=== PATIENT | female | born 1990 | race American Indian/Alaskan Native ===

== ENCOUNTER 2019-10-20 19:47 | Emergency (ER) | payer SELFPAY ==
[2019-10-20] MEDS ORDERED: IBUPROFEN 800 MG TAB ONE (21:24)
[2019-10-20] MEDS ORDERED: IBUPROFEN 800 MG TAB PO ONE (21:39)
--- NOTE | 2019-10-20 21:39 | Event Note ---
ED Screening Note Date of service: 10/20/19 Time: 21:37 ED Screening Note: This initial assessment/diagnostic orders/clinical plan/treatment(s) is/are subject to change based on patients health status, clinical progression and re- assessment by fellow clinical providers in the ED. Further treatment and workup at subsequent clinical providers discretion. Patient/guardian urged not to elope from the ED as their condition may be serious if not clinically assessed and managed. 28 yo female Fever, bodyaches chills and nausea x 2 days. Denies vomiting and diarrhea. On exam no distress, lungs clear. ENT WNL. Initial orders include: Flu Swab Motrin 800 mg po
[2019-10-20] MEDS ORDERED: ACETAMINOPHEN 500 MG TAB PO ONE (21:54)
--- NOTE | 2019-10-20 23:56 | XRay Report ---
CHEST 2 VIEWS INDICATION / CLINICAL INFORMATION: cough, fever. COMPARISON: None available. FINDINGS: SUPPORT DEVICES: None. HEART / MEDIASTINUM: No significant abnormality. LUNGS / PLEURA: No significant pulmonary or pleural abnormality. No pneumothorax. ADDITIONAL FINDINGS: No significant additional findings. IMPRESSION: 1. No acute findings. Signer Name: Flaco Weiss MD Signed: 10/20/2019 11:51 PM Workstation Name: [id number]
[2019-10-21 00:18] LABS: Bacteria,Urine 3+ /HPF (Negative); Bilirubin,Urine NEG (Negative); Blood,Urine NEG (Negative); Color,Urine Amber (Yellow); Hyaline Casts,Urine 4 /LPF; Mucus,Urine 3+ /HPF; Sperm,Urine 1+ /HPF (NP)
--- NOTE | 2019-10-21 00:42 | Emergency Department Report ---
- General Chief Complaint: Upper Respiratory Infection Stated Complaint: SOB, FEVER, HEADACHE, BODY PAIN Time Seen by Provider: 10/20/19 21:34 Source: patient Mode of arrival: Ambulatory Limitations: No Limitations - History of Present Illness Initial Comments: Patient is a 28-year-old -British female with no past medical history who presents to the ED with complaint of acute onset persistent diffuse body aches and pains, nasal and sinus congestion, sore throat, dry cough, headache and lightheadedness with intermittent fever off up to 103F for the last 2 days. Patient states that she has also had nausea but no vomiting. Patient denies abdominal pain, vaginal bleeding, dysuria, urinary frequency and urgency, dizziness, chest pain, shortness of breath, or syncope. MD Complaint: fever, cough, sore throat, rhinorrhea, nasal congestion, sinus pain, other (diffuse body aches and pain) -: Sudden, days(s) (2) Severity: severe Severity scale (0 -10): 8 Quality: sharp, aching Consistency: constant Improves With: nothing Worsens With: nothing Context: sick contacts Associated Symptoms: denies other symptoms, fever, chills, myalgias, diaphoresis, headache, rhinorrhea, nasal congestion, sore throat, cough, nausea. denies: stiff neck, chest pain, shortness of breath, abdominal pain, vomiting, diarrhea, dysuria, rash, confusion, right sweats, weight loss, epistaxis, ear pain, other Treatments Prior to Arrival: none - Related Data Previous Rx's Medication Instructions Recorded Last Taken Type Amoxicillin [Trimox CAP] 500 mg PO Q8H #30 capsule 10/21/19 Unknown Rx Benzonatate [Tessalon Perles] 100 mg PO Q8HR #30 capsule 10/21/19 Unknown Rx Ibuprofen [Motrin] 600 mg PO Q8H PRN #24 tablet 10/21/19 Unknown Rx Ondansetron [Zofran Odt] 4 mg PO Q6H PRN #15 tab.rapdis 10/21/19 Unknown Rx methylPREDNISolone [Medrol 4MG 4 mg PO DAILY #21 tab.ds.pk 10/21/19 Unknown Rx DOSEPAK (21 tabs)] Allergies Allergy/AdvReac Type Severity Reaction Status Date / Time No Known Allergies Allergy Unverified 10/20/19 20:10 ED Review of Systems ROS: Stated complaint: SOB, FEVER, HEADACHE, BODY PAIN Other details as noted in HPI Constitutional: chills, fever, malaise, weakness Eyes: denies: eye pain, eye discharge, vision change ENT: throat pain, congestion. denies: ear pain Respiratory: cough. denies: shortness of breath, SOB with exertion, SOB at rest, wheezing Cardiovascular: chest pain. denies: palpitations, dyspnea on exertion Endocrine: no symptoms reported. denies: excessive sweating Gastrointestinal: nausea. denies: abdominal pain, vomiting, diarrhea Genitourinary: denies: urgency, dysuria, discharge Musculoskeletal: back pain, arthralgia, myalgia. denies: joint swelling Skin: denies: rash, lesions Neurological: headache. denies: weakness, paresthesias Psychiatric: denies: anxiety, depression Hematological/Lymphatic: denies: easy bleeding, easy bruising ED Past Medical Hx - Past Medical History Previous Medical History?: No - Surgical History Past Surgical History?: No - Social History Smoking Status: Never Smoker Substance Use Type: None - Medications Home Medications: Home Medications Medication Instructions Recorded Confirmed Last Taken Type Amoxicillin [Trimox CAP] 500 mg PO Q8H #30 capsule 10/21/19 Unknown Rx Benzonatate [Tessalon Perles] 100 mg PO Q8HR #30 capsule 10/21/19 Unknown Rx Ibuprofen [Motrin] 600 mg PO Q8H PRN #24 tablet 10/21/19 Unknown Rx Ondansetron [Zofran Odt] 4 mg PO Q6H PRN #15 tab.rapdis 10/21/19 Unknown Rx methylPREDNISolone [Medrol 4MG 4 mg PO DAILY #21 tab.ds.pk 10/21/19 Unknown Rx DOSEPAK (21 tabs)] ED Physical Exam - General Limitations: No Limitations General appearance: alert, in no apparent distress - Head Head exam: Present: atraumatic, normocephalic, normal inspection - Eye Eye exam: Present: normal appearance, PERRL, EOMI Pupils: Present: normal accommodation - ENT ENT exam: Present: mucous membranes moist, TM's normal bilaterally, normal external ear exam, other (grossly Congested nasal passages) - Neck Neck exam: Present: normal inspection, full ROM, lymphadenopathy. Absent: tenderness - Respiratory Respiratory exam: Present: normal lung sounds bilaterally. Absent: respiratory distress, wheezes, rales, stridor, chest wall tenderness, accessory muscle use, decreased breath sounds - Cardiovascular Cardiovascular Exam: Present: normal rhythm, tachycardia, normal heart sounds. Absent: systolic murmur, diastolic murmur, rubs, gallop - GI/Abdominal GI/Abdominal exam: Present: soft, normal bowel sounds. Absent: tenderness, rebound, hyperactive bowel sounds, hypoactive bowel sounds, organomegaly - Extremities Exam Extremities exam: Present: normal inspection, full ROM, normal capillary refill - Back Exam Back exam: Present: normal inspection, full ROM. Absent: tenderness, CVA tenderness (R), muscle spasm, paraspinal tenderness, vertebral tenderness - Neurological Exam Neurological exam: Present: alert, oriented X3, CN II-XII intact, normal gait, reflexes normal - Psychiatric Psychiatric exam: Present: normal affect, normal mood - Skin Skin exam: Present: warm, dry, intact, normal color. Absent: rash ED Course Vital Signs 10/20/19 10/20/19 10/20/19 21:23 21:42 22:22 Temperature 102.4 F H Pulse Rate 106 H Respiratory 18 20 16 Rate Blood Pressure 133/76 Blood Pressure [Left] O2 Sat by Pulse 98 Oximetry 10/20/19 10/20/19 10/21/19 22:42 23:22 00:57 Temperature 98.7 F Pulse Rate 74 Respiratory 16 16 16 Rate Blood Pressure Blood Pressure 106/82 [Left] O2 Sat by Pulse 99 Oximetry - Reevaluation(s) Reevaluation #1: 10/21/19 00:58 This is a 28-year-old female who presented to the ED with complaint of acute onset persistent nasal and sinus congestion, fever, dry cough, diffuse body aches and pains and sore throat for the last 2 days. In the ED, patient is alert and oriented 3 and is not in distress but febrile and tachycardic in triage. Patient was treated for fever and rapid influenza test is negative. Rapid strep test was also negative. Chest x-ray shows no acute cardiopulmonary abnormalities or pneumonitis. Lab test results are nonactionable. On reevaluation, patient fever resolved as well as tachycardia. Patient was treated and discharged home on medications and was advised to follow-up with her primary care physician in 5-7 days for reevaluation or return to the ED immediately if symptoms get worse. ED Medical Decision Making - Radiology Data Radiology results: report reviewed, image reviewed Chest x-ray shows no acute cardiopulmonary abnormalities or pneumonitis. - Medical Decision Making This is a 28-year-old female who presented to the ED with complaint of acute onset persistent nasal and sinus congestion, fever, dry cough, diffuse body aches and pains and sore throat for the last 2 days. In the ED, patient is alert and oriented 3 and is not in distress but febrile and tachycardic in triage. Patient was treated for fever and rapid influenza test is negative. Rapid strep test was also negative. Chest x-ray shows no acute cardiopulmonary abnormalities or pneumonitis. Lab test results are nonactionable. On reevaluation, patient fever resolved as well as tachycardia. Patient was treated and discharged home on medications and was advised to follow-up with her primary care physician in 5-7 days for reevaluation or return to the ED immediately if symptoms get worse. - Differential Diagnosis pneumonia; Flu; Strep pharyngitis; Bronchitis; UTI; URI Critical care attestation.: If time is entered above; I have spent that time in minutes in the direct care of this critically ill patient, excluding procedure time. ED Disposition Clinical Impression: Acute upper respiratory infection, Fever with chills, Flu-like symptoms Acute bronchitis Qualifiers: Bronchitis organism: other organism Qualified Code(s): J20.8 - Acute bronchitis due to other specified organisms Acute pharyngitis Qualifiers: Pharyngitis/tonsillitis etiology: other specified organisms Qualified Code(s): J02.8 - Acute pharyngitis due to other specified organisms Disposition: DC- TO HOME OR SELFCARE Is pt being admited?: No Does the pt Need Aspirin: No Condition: Stable Instructions: Pharyngitis (ED), Fever in Adults (ED), Upper Respiratory Infection (ED), Acute Bronchitis (ED) Additional Instructions: Take medication with food, drink plenty fluids and follow-up with your primary care physician in 7-10 days for reevaluation. Return to the ED immediately if symptoms get worse. Prescriptions: methylPREDNISolone [Medrol 4MG DOSEPAK (21 tabs)] 4 mg PO DAILY #21 tab.ds.pk Ibuprofen [Motrin] 600 mg PO Q8H PRN #24 tablet PRN Reason: Pain Benzonatate [Tessalon Perles] 100 mg PO Q8HR #30 capsule Amoxicillin [Trimox CAP] 500 mg PO Q8H #30 capsule Ondansetron [Zofran Odt] 4 mg PO Q6H PRN #15 tab.rapdis PRN Reason: Nausea Referrals: PRIMARY CARE,MD [Primary Care Provider] - 3-5 Days Forms: Work/School Release Form(ED) Time of Disposition: 00:42 Print Language: CZECH
[2019-10-21 01:26] VITALS: BP 106/82
== END 2019-10-21 00:57 | disposition home or self-care (01) ==
LOC: ED 19:47
DX: J06.9 Acute upper respiratory infection, unspecified (principal); J20.9 Acute bronchitis, unspecified; J02.8 Acute pharyngitis due to other specified organisms
CPT/HCPCS: 36415; 71046; 81001; 84702; 87086; 87116; 87400; 87430